=== PATIENT | female | born 1940 | race Caucasian/White ===

== ENCOUNTER 2018-05-26 10:30 | Emergency (ER) | payer OTHER ==
[~2018-05-26] VITALS: Ht 160 cm; Wt 87.1 kg
[2018-05-26] MEDS ORDERED: VERAPAMIL ER120 MG (10:35)
== END 2018-05-26 12:35 | disposition home or self-care (01) ==
LOC: ER 10:30
DX: S00.11XA Contusion of right eyelid and periocular area, initial encounter (principal); W22.8XXA Striking against or struck by other objects, initial encounter; Y93.89 Activity, other specified; Y92.89 Other specified places as the place of occurrence of the external cause; Y99.8 Other external cause status